=== PATIENT | male | born 1940 | race Caucasian/White ===

== ENCOUNTER → 2017-10-27 | Day surgery (SDC) | payer MEDICARE ==
[~2017-10-27] MED LIST: ASPI1TAB57 PO; CLAR10CA3 PO; IBUP1TAB7 PO; LIDOCAINE HCL 1% 30 ML VIAL NERV BLOCK ONE; MEPERIDINE HCL 25 MG/ML VIAL IV ONE; MULT1TAB84 PO; OMEG100010 PO; PRAV40TA2 PO; PROPOFOL 200 MG/20 ML AMP IV ONE; SODIUM CHLORIDE 0.9% 10 ML VIAL ONE; TAMS5CAP PO; TOPR25TA PO; TOPR50TA PO; ZOLP10TA3 PO; methylPREDNISolone ACETATE 80 MG/ML VIAL ONE
--- NOTE | 2017-10-27 09:16 | M6 ---
cc: ARIAN DAVIES M.D. DATE 10/27/2017 DATE OF 1940. PROCEDURE Fluoroscopically guided left L3-4 epidural steroid injection. History and physical was completed and signed. Consent was signed. Procedure site was marked. Medications were listed and reconciled. Pain score was recorded. Allergies were noted. Time out was taken. Fluoroscopy time was recorded where applicable. Sedation was administered or directed by Dr. Davies. The patient was given oxygen. The patient was monitored by a registered nurse. Total procedure time was greater than 15 minutes. PROCEDURE NOTE IV was started. Blood pressure cuff, pulse oximeter and EKG were applied. The patient was placed in the prone position on a Mehran table, sedated with small amounts of propofol titrated to effect. Vital signs were monitored and remained stable throughout the procedure. The lumbar area was prepped with alcohol and 10% Betadine solution and draped with sterile drapes. Fluoroscopy was used in the AP and lateral projection to clearly visualize the left L3-4 neural foramen. A 3-1/2-inch, 22-gauge Chiba needle was advanced down into the dorsal aspect of the foramen. There was negative aspiration for blood or any other type of fluid and the patient was given 10 mL of 0.5% Xylocaine, 80 mg of Depo-Medrol. Following this the patient was taken to the recovery room with stable vital signs, neurologically intact. W. MD SHIRA Dee/JODEE /8:54 AM /8:59 AM
== END | disposition home or self-care (01) ==
LOC: PHSDC 06:34
PROVIDERS: ATTEND Pain Medicine Interventional Pain Medicine
DX: M54.5 Low back pain (principal)
CPT/HCPCS: 62323; 99152; J1040; J2175